=== PATIENT | male | born 1970 | race Caucasian/White ===

== ENCOUNTER 2018-04-13 20:50 | Inpatient (IN) | payer MEDICAID ==
[~2018-04-13] VITALS: Ht 167.6 cm; Wt 102.5 kg
[2018-04-13 20:55] VITALS: BP 145/81
[2018-04-13 21:15] VITALS: BP 120/88
[2018-04-13] MEDS ORDERED: HALOPERIDOL 5 MG TABLET PO PRN (21:15)
[2018-04-13] MEDS ORDERED: LORazepam 2 MG TABLET PO PRN (21:15)
[2018-04-13] MEDS ORDERED: PROZ10 PO (21:35)
[2018-04-13] MEDS ORDERED: IBUPROFEN 600 MG TABLET PO PRN (22:00)
[2018-04-13] MEDS ORDERED: ACETAMINOPHEN 325 MG TABLET PO PRN (22:00)
[2018-04-14] VITALS: BP 100/61
[2018-04-14 07:47] LABS: BASOPHILS % (AUTO) 0.7 % (0.0-2.0); EOSINOPHILS % (AUTO) 1.5 % (1.0-6.0); HEMATOCRIT 49.6 % (41-53); LYMPHOCYTES # (AUTO) 2.9 K/uL (1.0-4.8); LYMPHOCYTES % (AUTO) 25.1 % (22.0-44.0); MEAN CORPUSCULAR HEMOGLOBIN 31.9 pg (26.0-34.0); MEAN CORPUSCULAR HGB CONC 34.2 G/dL (31.0-37.0); MEAN CORPUSCULAR VOLUME 93 fL (80-100); MONOCYTES # (AUTO) 0.9 K/uL (0.1-1.0); MONOCYTES % (AUTO) 8.1 % (2.0-9.0); NEUTROPHILS # (AUTO) 7.6 K/uL (1.8-7.7); NEUTROPHILS % (AUTO) 64.6 % (40.0-70.0); PLATELET COUNT (AUTO) 199 K/uL (150-450); RED BLOOD CELL COUNT(AUTO) 5.33 MIL/uL (4.50-5.90); RED CELL DISTRIBUTION WIDTH 14.2 % (11.5-14.5)
[2018-04-14 08:05] VITALS: BP 110/70
[2018-04-14 08:13] LABS: HEMOGLOBIN A1C 6.3 % (4.5-6.2)
[2018-04-14] MEDS: NICOTINE 21 MG/24 HOUR PATCH TD SCH (08:16)
[2018-04-14 08:23] LABS: ALANINE AMINOTRANSFERASE 124 U/L (12-78); ALBUMIN 4.2 g/dL (3.4-5.0); ALKALINE PHOSPHATASE 56 U/L (46-116); ANION GAP 8 mmol/L (8-16); ASPARTATE AMINOTRANSFERASE 61 U/L (15-37); BILIRUBIN,TOTAL 1.2 mg/dL (0.1-1.0); CALCIUM, TOTAL 8.9 mg/dL (8.8-10.5); CARBON DIOXIDE 32 mmol/L (22-29); CHLORIDE 109 mmol/L (98-107); CHOL/HDL RATIO 3.2 (4.2-7.3); CHOLESTEROL 120 mg/dL (131-200); CREATININE 1.08 mg/dL (0.60-1.30); GLOMERULAR FILTR. RATE CALC > 60 mL/min (>60); GLUCOSE,RANDOM 86 mg/dL (70-110); HDL CHOLESTEROL 37 mg/dL (40-60); LDL CHOL (CALC.) 72 mg/dL (0-130); POTASSIUM 4.7 mmol/L (3.5-5.1); SODIUM SERUM 149 mmol/L (136-145); THYROID STIMULATING HORMONE 1.65 uIU/mL (0.36-3.74); TOTAL PROTEIN, SERUM 7.8 g/dL (6.4-8.2); TRIGLYCERIDES 56 mg/dL (15-150); UREA NITROGEN, BLOOD 13 mg/dL (7-18)
[2018-04-14 08:29] LABS: AMPHET/METH SCREEN,URINE NEGATIVE (NEGATIVE); BARBITURATE SCREEN, URINE NEGATIVE (NEGATIVE); BENZODIAZEPINES SCREEN,URINE NEGATIVE (NEGATIVE); CANNABINOID SCREEN,URINE NEGATIVE (NEGATIVE); COCAINE SCREEN,URINE NEGATIVE (NEGATIVE); METHADONE SCREEN, URINE NEGATIVE (NEGATIVE); OPIATE SCREEN,URINE NEGATIVE (NEGATIVE)
[2018-04-14 08:30] LABS: PHENCYCLIDINE SCREEN,URINE NEGATIVE (NEGATIVE)
[2018-04-14 08:43] LABS: APPEARANCE,URINE TURBID (CLEAR); GLUCOSE, URINE (UA) 250 mg/dL (NEGATIVE); KETONES,URINE TRACE mg/dL (NEGATIVE); LEUKOCYTE ESTERASE ,URINE SMALL (NEGATIVE); OCCULT BLOOD,URINE NEGATIVE (NEGATIVE); PH,URINE 5.5 (5.0-8.0); PROTEIN,URINE POS 1+ (NEGATIVE)
[2018-04-14 09:23] LABS: BILIRUBIN,URINE PRELIM. POSITIVE (NEGATIVE)
[2018-04-14 09:57] LABS: NITRATE,URINE POSITIVE (NEGATIVE)
[2018-04-14 09:58] LABS: RBC,URINE 0-2 /HPF (0-2)
[2018-04-14 09:59] LABS: BACTERIA,URINE Moderate /HPF (None Seen); CALCIUM OXALATE CRYSTALS,UR Few /LPF (None Seen); SQUAMOUS EPITHELIAL CELL,UR Few /LPF (None Seen)
[2018-04-14] MEDS: FLUoxetine HCL 10 MG CAPSULE PO SCH ×2 (10:30→17:20)
[2018-04-14] MEDS: NITROFURANTOIN/NITROFURAN MAC 100 MG CAPSULE [MACROBID] PO SCH ×2 (11:08→16:24)
[2018-04-14 16:02] VITALS: BP 113/61
[2018-04-15 06:15] VITALS: BP 120/81
[2018-04-15 07:34] LABS: APPEARANCE,URINE CLOUDY (CLEAR); BILIRUBIN,URINE NEGATIVE (NEGATIVE); GLUCOSE, URINE (UA) NEGATIVE (NEGATIVE); KETONES,URINE NEGATIVE (NEGATIVE); LEUKOCYTE ESTERASE ,URINE MODERATE (NEGATIVE); NITRATE,URINE NEGATIVE (NEGATIVE); OCCULT BLOOD,URINE NEGATIVE (NEGATIVE); PH,URINE 6.5 (5.0-8.0); PROTEIN,URINE NEGATIVE (NEGATIVE)
[2018-04-15 07:49] LABS: BACTERIA,URINE Few /HPF (None Seen); RBC,URINE 0-2 /HPF (0-2); SQUAMOUS EPITHELIAL CELL,UR Few /LPF (None Seen); WBC,URINE 26-50 /HPF (0-5)
[2018-04-15 07:50] LABS: CALCIUM OXALATE CRYSTALS,UR Few /LPF (None Seen)
[2018-04-15 08:33] VITALS: BP 114/64
[2018-04-15] MEDS: NITROFURANTOIN/NITROFURAN MAC 100 MG CAPSULE [MACROBID] PO SCH ×2 (08:40→16:24)
[2018-04-15] MEDS: NICOTINE 21 MG/24 HOUR PATCH TD SCH (08:45)
[2018-04-15 16:00] VITALS: BP 113/73
[2018-04-15] MEDS: ZOLPIDEM TARTRATE 10 MG TABLET PO PRN (20:40)
[2018-04-16 06:28] VITALS: BP 118/65
[2018-04-16] MEDS: FLUoxetine HCL 10 MG CAPSULE PO SCH (08:37)
[2018-04-16] MEDS: NITROFURANTOIN/NITROFURAN MAC 100 MG CAPSULE [MACROBID] PO SCH ×2 (08:37→16:23)
[2018-04-16] MEDS: NICOTINE 21 MG/24 HOUR PATCH TD SCH (08:38)
[2018-04-16 08:53] LABS: ALANINE AMINOTRANSFERASE 127 U/L (12-78); ALBUMIN 3.9 g/dL (3.4-5.0); ALKALINE PHOSPHATASE 55 U/L (46-116); ANION GAP 7 mmol/L (8-16); ASPARTATE AMINOTRANSFERASE 62 U/L (15-37); BILIRUBIN,TOTAL 0.4 mg/dL (0.1-1.0); CALCIUM, TOTAL 8.2 mg/dL (8.8-10.5); CARBON DIOXIDE 29 mmol/L (22-29); CHLORIDE 104 mmol/L (98-107); CREATININE 0.93 mg/dL (0.60-1.30); GLOMERULAR FILTR. RATE CALC > 60 mL/min (>60); GLUCOSE,RANDOM 108 mg/dL (70-110); POTASSIUM 4.3 mmol/L (3.5-5.1); SODIUM SERUM 140 mmol/L (136-145); TOTAL PROTEIN, SERUM 7.7 g/dL (6.4-8.2); UREA NITROGEN, BLOOD 10 mg/dL (7-18)
[2018-04-16 08:56] VITALS: BP 106/58
[2018-04-16 16:00] VITALS: BP 113/70
[2018-04-16] MEDS: ZOLPIDEM TARTRATE 10 MG TABLET PO PRN (20:07)
[2018-04-17 06:02] VITALS: BP 120/72
[2018-04-17] MEDS: NITROFURANTOIN/NITROFURAN MAC 100 MG CAPSULE [MACROBID] PO SCH ×2 (08:09→16:30)
[2018-04-17] MEDS: NICOTINE 21 MG/24 HOUR PATCH TD SCH (08:09)
[2018-04-17] MEDS: FLUoxetine HCL 10 MG CAPSULE PO SCH (08:09)
[2018-04-17 08:29] VITALS: BP 116/55
[2018-04-17 16:39] VITALS: BP 120/81
[2018-04-17] MEDS: ZOLPIDEM TARTRATE 10 MG TABLET PO PRN (20:20)
[2018-04-18 05:09] VITALS: BP 116/75
[2018-04-18 08:31] VITALS: BP 113/67
[2018-04-18] MEDS: FLUoxetine HCL 10 MG CAPSULE PO SCH (09:38)
[2018-04-18] MEDS: NICOTINE 21 MG/24 HOUR PATCH TD SCH (09:38)
[2018-04-18] MEDS: NITROFURANTOIN/NITROFURAN MAC 100 MG CAPSULE [MACROBID] PO SCH ×2 (09:38→16:35)
[2018-04-18 16:00] VITALS: BP 123/70
[2018-04-19 06:37] VITALS: BP 110/70
[2018-04-19] MEDS: NITROFURANTOIN/NITROFURAN MAC 100 MG CAPSULE [MACROBID] PO SCH (08:22)
[2018-04-19] MEDS: FLUoxetine HCL 10 MG CAPSULE PO SCH (08:22)
[2018-04-19] MEDS: NICOTINE 21 MG/24 HOUR PATCH TD SCH (08:23)
[2018-04-19 08:29] VITALS: BP 112/70
[2018-04-19 16:42] VITALS: BP 122/72
[2018-04-19] MEDS: ZOLPIDEM TARTRATE 10 MG TABLET PO PRN (21:55)
[2018-04-20] MEDS ORDERED: PROZ10 PO (02:14)
[2018-04-20 05:50] VITALS: BP 120/81
== END 2018-04-20 07:15 | disposition home or self-care (01) | DRG 751 ==
LOC: B2S 21:03
DX: F33.2 Major depressive disorder, recurrent severe without psychotic features (principal); F11.20 Opioid dependence, uncomplicated; R45.851 Suicidal ideations; F10.20 Alcohol dependence, uncomplicated; Z91.5 Personal history of self-harm; Z81.8 Family history of other mental and behavioral disorders; Z79.899 Other long term (current) drug therapy; Z59.0 Homelessness
CPT/HCPCS: 80074; 80307; 83036; 84439; 84443; 87086